=== PATIENT | female | born 1990 | race American Indian/Alaskan Native ===

== ENCOUNTER 2016-11-24 13:14 | Emergency (ER) | payer MEDICAID ==
--- NOTE | 2016-11-24 13:19 | EDM.PDOC ---
ED HISTORY OF PRESENT ILLNESS - General Chief Complaint: Respiratory Problem Stated Complaint: HEAVINESS IN CHEST 4XDAYS Time Seen by Provider: 11/24/16 13:18 Source of Information: Reports: Patient, Old records, RN, RN notes reviewed History Limitations: Reports: No limitations - History of Present Illness INITIAL COMMENTS - FREE TEXT/NARRATIVE: Arrives from home by POV with c/o generalized chest heaviness x4 days. Pt reports onset of Sx's was just a couple of days after starting an oral control pill for the first time. Admits to a mild persistent shortness of breath that is worse with activity, dry cough with occasional clear sputum, fatigue, mild nausea, and occasional lightheadedness. She denies radiating pain , fever, chills, sore throat, wheezing, leg pain or swelling, palpitations, syncope, or headache. Pt states she has never smoked, and denies any Hx of DVT/ PE. She is unsure of family Hx of DVT/PE. Symptom Onset Date: 11/20/16 Timing/Duration: Reports: Constant Severity: moderate Location, General: Reports: chest Quality: Reports: Pressure Improves with: Reports: None Worsens with: Reports: Other (cough and exertion) Context, General: Reports: Other (new medication (oral BCP)). 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: Endocrine/Metabolic History: Reports: Diabetes, gestational - Infectious Disease History Infectious Disease History: Reports: Chicken pox Social & Family History - Family History Family Medical History: Unobtainable - Tobacco Use Smoking Status *Q: Never Smoker Second Hand Smoke Exposure: No - Caffeine Use Caffeine Use: Reports: Soda - Alcohol Use Alcohol Use History: No - Recreational Drug Use Recreational Drug Use: No - Sexual History Sexual History: Reports: Sexually active, Single partner - Living Situation & Occupation Living situation: Reports: with significant other ED ROS GENERAL - Review of Systems Review Of Systems: ROS reveals no pertinent complaints other than HPI. ED EXAM, GENERAL - Physical Exam Exam: See Below Exam Limited By: No limitations General Appearance: alert, WD/WN, no apparent distress Eye Exam: bilateral eye: normal inspection Nose: normal inspection, normal mucosa, no blood Throat/Mouth: Normal inspection, Normal lips, Normal teeth, Normal gums, Normal oropharynx, Normal voice, No airway compromise Head: atraumatic, normocephalic Neck: normal inspection, supple, non-tender, full range of motion. No: carotid bruit, lymphadenopathy (L), lymphadenopathy (R), thyromegaly Respiratory/Chest: no respiratory distress, lungs clear, normal breath sounds, no accessory muscle use, chest non-tender Cardiovascular: normal peripheral pulses, regular rate, rhythm, no edema, no gallop, no JVD, no murmur, no rub GI/Abdominal: normal bowel sounds, soft, non tender, no organomegaly, no distention, no abnormal bruit, no mass (Female) Exam: Deferred Rectal (Female) Exam: Deferred Back Exam: normal inspection, full range of motion, NT Extremities: normal inspection, normal range of motion, non-tender, normal capillary refill, no pedal edema Neurological: alert, oriented, CN II-XII intact, normal cognition, normal gait, no motor/sensory deficits Psychiatric: normal affect, normal mood Skin Exam: Warm, Dry, Intact, Normal color, No rash EKG INTERPRETATION EKG Date: 11/24/16 Time: 13:26 Rhythm: other (SR) Rate (beats/min): 83 [place]: normal P-wave: present QRS: other (normal narrow complex. small Q wave and flat T wave in lead III) QT: normal Comparison: NA - no prior EKG Course - Vital Signs Last Recorded V/S: Last Vital Signs Temp 36.8 C 11/24/16 13:31 Pulse 85 11/24/16 13:31 Resp 16 11/24/16 13:31 BP 120/77 11/24/16 13:31 Pulse Ox 100 11/24/16 13:31 - Orders/Labs/Meds Orders: Active Orders 24 hr Category Date Time Status EKG 12 Lead [EKG Documentation Completion] [RC] STAT Care 11/24/16 13:30 Active Chest 2V [CR] Stat Exams 11/24/16 14:19 Taken Labs: Laboratory Tests 11/24/16 11/24/16 11/24/16 Range/Units 13:26 13:26 13:26 WBC (5.0-10.0) 10^3/uL RBC (4.2-5.4) 10^6/uL Hgb (12.0-16.0) g/dL Hct (37.0-47.0) % MCV (80-100) fL MCH (27.0-34.0) pg MCHC (33.0-35.0) g/dL Plt Count (150-450) 10^3/uL Neut % (Auto) (42.2-75.2) % Lymph % (Auto) (20.5-50.1) % [place] % (Auto) (2-8) % Eos % (Auto) (1.0-3.0) % Baso % (Auto) (0.0-1.0) % D-Dimer, Quantitative (0-400) ng/mL Sodium (135-145) mmol/L Potassium (3.6-5.0) mmol/L Chloride (101-111) mmol/L Carbon Dioxide (21.0-31.0) mmol/L Anion Gap BUN (7-18) mg/dL Creatinine (0.6-1.3) mg/dL Est Cr Clr Drug Dosing mL/min Estimated GFR (MDRD) BUN/Creatinine Ratio Glucose (74-105) mg/dL Calcium (8.4-10.2) mg/dl Total Bilirubin (0.2-1.0) mg/dL AST (10-42) IU/L ALT (10-60) IU/L Alkaline Phosphatase (42-121) IU/L Troponin I (0.00-0.02) ng/ml Total Protein (6.7-8.2) g/dl Albumin (3.2-5.5) g/dl Globulin Albumin/Globulin Ratio Urine Color Yellow (YELLOW) Urine Appearance Clear (CLEAR) Urine pH 7.5 (5.0-9.0) Ur Specific [place] 1.020 (1.005-1.030) Urine Protein Negative (NEGATIVE) Urine Glucose (UA) Negative (NEGATIVE) Urine Ketones Negative (NEGATIVE) Urine Occult Blood Negative (NEGATIVE) Urine Nitrite Negative (NEGATIVE) Urine Bilirubin Negative (NEGATIVE) Urine Urobilinogen 0.2 (0.2-1.0) mg/dL Ur Leukocyte Esterase Negative (NEGATIVE) Urine RBC 0-5 /HPF Urine WBC 0-5 (0-5/HPF) /HPF Ur Epithelial Cells Occasional /HPF Urine Bacteria Few (0-FEW/HPF) /HPF Urine HCG, Qual Negative Urine Opiates Screen Negative (NEGATIVE) Ur Oxycodone Screen Negative (NEGATIVE) Urine Methadone Screen Negative (NEGATIVE) Ur Barbiturates Screen Negative (NEGATIVE) U Tricyclic Antidepress Negative (NEGATIVE) Ur Phencyclidine Scrn Negative (NEGATIVE) Ur Amphetamine Screen Negative (NEGATIVE) U Methamphetamines Scrn Negative (NEGATIVE) Urine MDMA Screen Negative (NEGATIVE) U Benzodiazepines Scrn Negative (NEGATIVE) Urine Cocaine Screen Negative (NEGATIVE) U Marijuana (THC) Screen Negative (NEGATIVE) 11/24/16 11/24/16 11/24/16 Range/Units 13:35 13:35 13:35 WBC 10.0 (5.0-10.0) 10^3/uL RBC 4.06 L (4.2-5.4) 10^6/uL Hgb 12.1 (12.0-16.0) g/dL Hct 37.0 (37.0-47.0) % MCV 91.1 (80-100) fL MCH 29.8 (27.0-34.0) pg MCHC 32.7 L (33.0-35.0) g/dL Plt Count 282 (150-450) 10^3/uL Neut % (Auto) 64.0 (42.2-75.2) % Lymph % (Auto) 28.2 (20.5-50.1) % [place] % (Auto) 6.4 (2-8) % Eos % (Auto) 0.9 L (1.0-3.0) % Baso % (Auto) 0.5 (0.0-1.0) % D-Dimer, Quantitative < 100 (0-400) ng/mL Sodium 139 (135-145) mmol/L Potassium 3.7 (3.6-5.0) mmol/L Chloride 107 (101-111) mmol/L Carbon Dioxide 25.0 (21.0-31.0) mmol/L Anion Gap 10.7 BUN 8 (7-18) mg/dL Creatinine 0.7 (0.6-1.3) mg/dL Est Cr Clr Drug Dosing 112.78 mL/min Estimated GFR (MDRD) > 60 BUN/Creatinine Ratio 11.42 Glucose 103 (74-105) mg/dL Calcium 8.8 (8.4-10.2) mg/dl Total Bilirubin 0.2 (0.2-1.0) mg/dL AST 18 (10-42) IU/L ALT 14 (10-60) IU/L Alkaline Phosphatase 73 (42-121) IU/L Troponin I < 0.02 (0.00-0.02) ng/ml Total Protein 7.6 (6.7-8.2) g/dl Albumin 4.1 (3.2-5.5) g/dl Globulin 3.5 Albumin/Globulin Ratio 1.17 Urine Color (YELLOW) Urine Appearance (CLEAR) Urine pH (5.0-9.0) Ur Specific [place] (1.005-1.030) Urine Protein (NEGATIVE) Urine Glucose (UA) (NEGATIVE) Urine Ketones (NEGATIVE) Urine Occult Blood (NEGATIVE) Urine Nitrite (NEGATIVE) Urine Bilirubin (NEGATIVE) Urine Urobilinogen (0.2-1.0) mg/dL Ur Leukocyte Esterase (NEGATIVE) Urine RBC /HPF Urine WBC (0-5/HPF) /HPF Ur Epithelial Cells /HPF Urine Bacteria (0-FEW/HPF) /HPF Urine HCG, Qual Urine Opiates Screen (NEGATIVE) Ur Oxycodone Screen (NEGATIVE) Urine Methadone Screen (NEGATIVE) Ur Barbiturates Screen (NEGATIVE) U Tricyclic Antidepress (NEGATIVE) Ur Phencyclidine Scrn (NEGATIVE) Ur Amphetamine Screen (NEGATIVE) U Methamphetamines Scrn (NEGATIVE) Urine MDMA Screen (NEGATIVE) U Benzodiazepines Scrn (NEGATIVE) Urine Cocaine Screen (NEGATIVE) U Marijuana (THC) Screen (NEGATIVE) - Radiology Interpretation Free Text/Narrative:: CXR: no acute infiltrates, see Rad. report. CT Results Date: 11/24/16 - Re-Assessments/Exams Free Text/Narrative Re-Assessment/Exam: 11/24/16 15:00 I explained the exam findings, results of all diagnostic tests, working diagnosis, and any potential or additionally considered diagnoses, treatment/ disposition plan, self/home care instructions, rational for the diagnosis/ treatment plan/disposition plan, anticipated course of illness, and follow up instructions to the pt and/or pts family or guardian. The pt and/or pts family or guardian acknowledges understanding of the above explanation(s), and of the signs and symptoms which should prompt the return of the pt to the ER should those or any other concerning symptoms develop. Departure - Departure Time of Disposition: 15:07 Disposition: Home, Self-Care 01 Condition: good Clinical Impression: Chest heaviness Oral contraceptive causing adverse effect in therapeutic use Qualifiers: Encounter type: initial encounter Qualified Code(s): T38.4X5A - Adverse effect of oral contraceptives, initial encounter Instructions: Nonspecific Chest Pain, [id number] Forms: ED Department Discharge Additional Instructions: Follow up with your doctor about adverse side effects to your new oral control. Return to ER if worse at any time, or if any new concerning symptoms develop. - My Orders Last 24 Hours: My Active Orders 11/24/16 13:30 EKG 12 Lead [EKG Documentation Completion] [RC] STAT 11/24/16 14:19 Chest 2V [CR] Stat - Assessment/Plan Last 24 Hours: My Active Orders 11/24/16 13:30 EKG 12 Lead [EKG Documentation Completion] [RC] STAT 11/24/16 14:19 Chest 2V [CR] Stat
[2016-11-24 13:34] VITALS: BP 120/77
[2016-11-24 14:04] LABS: CHLORIDE,CL 107 mmol/L (101-111); SODIUM,NA 139 mmol/L (135-145)
--- NOTE | 2016-11-24 15:08 | CR ---
Clinical history: 26-year-old female chest "heaviness" and congestion Interpretation: Negative exam. Normal cardiac silhouette without alveolar edema or dependent pleural effusion. No lung mass, hilar lymphadenopathy or focal lobar pneumonia. No acute "cuffing" or air trapping. No atelectasis/collapse. No pneumothorax. Isaias thorax unremarkable.
--- NOTE | 2016-11-30 21:01 | EKG ---
11/24/2016 - KALYANI VEGAS - TIME: 1526 hours. I reviewed the EKG and agree with the machine's reading. [facility] /[id number]
== END 2016-11-24 15:17 | disposition home or self-care (01) ==
LOC: DL.ED 13:14
DX: R07.89 Other chest pain (principal); T38.4X5A Adverse effect of oral contraceptives, initial encounter; K21.9 Gastro-esophageal reflux disease without esophagitis
CPT/HCPCS: 36415; 71020; 80053; 80305; 81001; 81025; 84484; 85025; 85379; 93005; 99285

== ENCOUNTER 2017-09-12 16:31 | Emergency (ER) | payer MEDICAID ==
[2017-09-12 16:44] VITALS: BP 125/72
[2017-09-12] MEDS ORDERED: Ketorolac 30 MG/ML SDV IVPUSH ONE (16:56)
[2017-09-12] MEDS ORDERED: Sodium Chloride 0.9% 1,000 ML IV ONE (16:56)
[2017-09-12 17:36] LABS: ANION GAP 12.5; CHLORIDE,CL 102 mmol/L (101-111); SODIUM,NA 136 mmol/L (135-145)
--- NOTE | 2017-09-12 17:41 | EDM.PDOC ---
ED HPI GENERAL MEDICAL PROBLEM - General Chief Complaint: Headache Stated Complaint: HEADACHE, [id number] Time Seen by Provider: 09/12/17 17:30 Source of Information: Reports: Patient History Limitations: Reports: No Limitations - History of Present Illness INITIAL COMMENTS - FREE TEXT/NARRATIVE: This 27 yo female patient reports to the ED with a 3 day history of a headache ( the headache has been behind her eyes, behind her left ear and in the posterior head). The patient reports she currently does not have a headache. The patient reports she also had a toothache, saw the dentist, was told there was no abscess (after x-rays), was given a script for Augmentin, but has not filled the script. The patient reports she came to the ED for a second opinion directly from the dental office. The patient reports she has taken some ibuprofen, but continues to have a headache. The patient reports she has been eating and drinking normal amounts. The patient reports no changes in her caffeine intake. 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 Left Posterior Headache Pain Score (Numeric/FACES): 3 - Related Data Allergies Allergy/AdvReac Type Severity Reaction Status Date / Time No Known Allergies Allergy Verified 02/16/16 08:31 Home Meds: Home Meds Control 11/24/16 [History] Past Medical History - Past Health History Medical/Surgical History: Denies Medical/Surgical History Gastrointestinal History: Reports: GERD 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: Endocrine/Metabolic History: Reports: Diabetes, Gestational - Infectious Disease History Infectious Disease History: Reports: Chicken Pox Social & Family History - Family History Family Medical History: Unobtainable - Tobacco Use Smoking Status *Q: Never Smoker Second Hand Smoke Exposure: No - Caffeine Use Caffeine Use: Reports: Coffee, Tea - Recreational Drug Use Recreational Drug Use: No - Sexual History Sexual History: Reports: Sexually Active, Single Partner - Living Situation & Occupation Living situation: Reports: with Significant Other ED ROS GENERAL - Review of Systems Review Of Systems: ROS reveals no pertinent complaints other than HPI. - Physical Exam Exam: See Below Exam Limited By: No Limitations General Appearance: Alert, WD/WN, No Apparent Distress Eye Exam: Bilateral Eye: EOMI, Normal Inspection, PERRL Ears: Normal External Exam, Normal Canal, Hearing Grossly Normal, Normal TMs Nose: Normal Inspection, Normal Mucosa, No Blood Throat/Mouth: Normal Inspection, Normal Lips, Normal Teeth, Normal Gums, Normal Oropharynx, Normal Voice, No Airway Compromise Head Exam: Atraumatic, Normocephalic Neck: Normal Inspection, Supple, Non-Tender, Full Range of Motion Respiratory/Chest: No Respiratory Distress, Lungs Clear, Normal Breath Sounds, No Accessory Muscle Use, Chest Non-Tender Cardiovascular: Normal Peripheral Pulses, Regular Rate, Rhythm, No Edema, No Gallop, No JVD, No Murmur, No Rub GI/Abdominal: Normal Bowel Sounds, Soft, Non-Tender, No Organomegaly, No Distention, No Abnormal Bruit, No Mass (Female) Exam: Deferred Rectal (Female) Exam: Deferred Neuro Exam (Abbreviated): Alert, Oriented, CN II-XII Intact, Normal Cognition, Normal Gait, Normal Reflexes, No Motor/Sensory Deficits Back Exam: Normal Inspection, Full Range of Motion, NT Extremities: Normal Inspection, Normal Range of Motion, Non-Tender, No Pedal Edema, Normal Capillary Refill Psychiatric: Normal Affect, Normal Mood Skin Exam: Warm, Dry, Intact, Normal Color, No Rash Course - Vital Signs Last Recorded V/S: Last Vital Signs Temp 36.9 C 09/12/17 16:43 Pulse 78 09/12/17 16:43 Resp 16 09/12/17 16:43 BP 125/72 09/12/17 16:43 Pulse Ox 100 09/12/17 16:43 - Orders/Labs/Meds Orders: Active Orders 24 hr Category Date Time Status CBC WITH AUTO DIFF [HEME] Urgent Lab 09/12/17 17:05 Results MANUAL DIFFERENTIAL QA/NC [HEME] Urgent Lab 09/12/17 17:05 Results Labs: Laboratory Tests 09/12/17 09/12/17 09/12/17 Range/Units 17:05 17:05 17:58 WBC 9.4 (5.0-10.0) 10^3/uL RBC 4.36 (4.2-5.4) 10^6/uL Hgb 13.0 (12.0-16.0) g/dL Hct 39.2 (37.0-47.0) % MCV 89.9 (80-100) fL MCH 29.8 (27.0-34.0) pg MCHC 33.2 (33.0-35.0) g/dL Plt Count 288 (150-450) 10^3/uL Neut % (Auto) 62.4 (42.2-75.2) % Lymph % (Auto) 29.7 (20.5-50.1) % [place] % (Auto) 6.6 (2-8) % Eos % (Auto) 0.8 L (1.0-3.0) % Baso % (Auto) 0.5 (0.0-1.0) % Add Manual Diff Yes Sodium 136 (135-145) mmol/L Potassium 3.5 L (3.6-5.0) mmol/L Chloride 102 (101-111) mmol/L Carbon Dioxide 25.0 (21.0-31.0) mmol/L Anion Gap 12.5 BUN 9 (7-18) mg/dL Creatinine 0.8 (0.6-1.3) mg/dL Est Cr Clr Drug Dosing 95.89 mL/min Estimated GFR (MDRD) > 60 BUN/Creatinine Ratio 11.25 Glucose 89 (74-105) mg/dL Calcium 9.3 (8.4-10.2) mg/dl Total Bilirubin 0.8 (0.2-1.0) mg/dL AST 52 H (10-42) IU/L ALT 40 (10-60) IU/L Alkaline Phosphatase 54 (42-121) IU/L Total Protein 7.8 (6.7-8.2) g/dl Albumin 4.7 (3.2-5.5) g/dl Globulin 3.1 Albumin/Globulin Ratio 1.52 Urine Color (YELLOW) Urine Appearance (CLEAR) Urine pH (5.0-9.0) Ur Specific [place] (1.005-1.030) Urine Protein (NEGATIVE) Urine Glucose (UA) (NEGATIVE) Urine Ketones (NEGATIVE) Urine Occult Blood (NEGATIVE) Urine Nitrite (NEGATIVE) Urine Bilirubin (NEGATIVE) Urine Urobilinogen (0.2-1.0) mg/dL Ur Leukocyte Esterase (NEGATIVE) Urine RBC /HPF Urine WBC (0-5/HPF) /HPF Ur Epithelial Cells /HPF Urine Bacteria (0-FEW/HPF) /HPF Urine Mucus /LPF Urine HCG, Qual Negative 09/12/17 Range/Units 17:58 WBC (5.0-10.0) 10^3/uL RBC (4.2-5.4) 10^6/uL Hgb (12.0-16.0) g/dL Hct (37.0-47.0) % MCV (80-100) fL MCH (27.0-34.0) pg MCHC (33.0-35.0) g/dL Plt Count (150-450) 10^3/uL Neut % (Auto) (42.2-75.2) % Lymph % (Auto) (20.5-50.1) % [place] % (Auto) (2-8) % Eos % (Auto) (1.0-3.0) % Baso % (Auto) (0.0-1.0) % Add Manual Diff Sodium (135-145) mmol/L Potassium (3.6-5.0) mmol/L Chloride (101-111) mmol/L Carbon Dioxide (21.0-31.0) mmol/L Anion Gap BUN (7-18) mg/dL Creatinine (0.6-1.3) mg/dL Est Cr Clr Drug Dosing mL/min Estimated GFR (MDRD) BUN/Creatinine Ratio Glucose (74-105) mg/dL Calcium (8.4-10.2) mg/dl Total Bilirubin (0.2-1.0) mg/dL AST (10-42) IU/L ALT (10-60) IU/L Alkaline Phosphatase (42-121) IU/L Total Protein (6.7-8.2) g/dl Albumin (3.2-5.5) g/dl Globulin Albumin/Globulin Ratio Urine Color Yellow (YELLOW) Urine Appearance Slightly cloudy (CLEAR) Urine pH 7.0 (5.0-9.0) Ur Specific [place] 1.015 (1.005-1.030) Urine Protein Negative (NEGATIVE) Urine Glucose (UA) Negative (NEGATIVE) Urine Ketones Trace H (NEGATIVE) Urine Occult Blood Trace-lysed H (NEGATIVE) Urine Nitrite Negative (NEGATIVE) Urine Bilirubin Negative (NEGATIVE) Urine Urobilinogen 0.2 (0.2-1.0) mg/dL Ur Leukocyte Esterase Trace H (NEGATIVE) Urine RBC 0-5 /HPF Urine WBC 5-10 H (0-5/HPF) /HPF Ur Epithelial Cells Many H /HPF Urine Bacteria Rare (0-FEW/HPF) /HPF Urine Mucus Rare /LPF Urine HCG, Qual Meds: Medications Discontinued Medications Generic Name Dose Route Start Last Admin Trade Name Margarita PRN Reason Stop Dose Admin Sodium Chloride 1,000 mls @ 999 mls/hr 09/12/17 16:56 09/12/17 17:14 Normal Saline IV 09/12/17 17:56 999 mls/hr .BOLUS ONE Administration Ketorolac Tromethamine 30 mg 09/12/17 16:56 09/12/17 17:49 Toradol IVPUSH 09/12/17 16:57 Not Given ONETIME ONE Departure - Departure Time of Disposition: 18:25 Disposition: Home, Self-Care 01 Condition: Fair Clinical Impression: Tension-type headache - Discharge Information Instructions: General Headache Without Cause, Nqny-[id number] Forms: ED Department Discharge Care Plan Goals: The patient was advised of the examination and lab results during the visit. The patient was given a liter of IV fluid while in the ED. The patient was encouraged to take over the counter medications for temporary symptom relief. If the patient has any additional symptoms or concerns, the patient should follow-up with her primary care provider or return to the emergency department. - My Orders Last 24 Hours: My Active Orders 09/12/17 17:05 CBC WITH AUTO DIFF [HEME] Urgent MANUAL DIFFERENTIAL QA/NC [HEME] Urgent - Assessment/Plan Last 24 Hours: My Active Orders 09/12/17 17:05 CBC WITH AUTO DIFF [HEME] Urgent MANUAL DIFFERENTIAL QA/NC [HEME] Urgent
== END 2017-09-12 18:38 | disposition home or self-care (01) ==
LOC: DL.ED 16:31
DX: G44.209 Tension-type headache, unspecified, not intractable (principal)
CPT/HCPCS: 36415; 80053; 81001; 81025; 85025; 96360; 99283; J7030

== ENCOUNTER 2018-01-11 16:40 | Emergency (ER) | payer MEDICAID ==
--- NOTE | 2018-01-11 17:11 | EDM.PDOC ---
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 It comes and goes. She recently finished Augmentin for dental infection. She gets diarrhea with Augmentin. She is not nauseated at this time. She has chills and chest wall pain. She has had no fever or shortness of breath. She has been taking Tylenol and Ibuprofen. Onset Date: 01/10/18 Duration: Getting Worse Location: Reports: Generalized Quality: Reports: Ache Severity: Mild Improves with: Reports: None Worsens with: Reports: None Associated Symptoms: Reports: No Other Symptoms Left Chest Pain Score (Numeric/FACES): 2 - Related Data Allergies Allergy/AdvReac Type Severity Reaction Status Date / Time No Known Allergies Allergy Verified 01/11/18 17:06 Home Meds: Home Meds Acetaminophen [Tylenol Extra Strength] 500 mg PO PRN 01/11/18 [History] Ibuprofen 400 mg PO PRN 01/11/18 [History] Past Medical History - Past Health History Medical/Surgical History: Denies Medical/Surgical History Gastrointestinal History: Reports: 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 ED EXAM, GENERAL - Physical Exam Exam: See Below Exam Limited By: No Limitations General Appearance: Alert, WD/WN, No Apparent Distress Eye Exam: Bilateral Eye: EOMI, Normal Inspection Ears: Normal External Exam, Normal Canal, Hearing Grossly Normal, Normal TMs Nose: Normal Inspection, Normal Mucosa, No Blood Throat/Mouth: Normal Inspection, Normal Lips, Normal Teeth, Normal Gums, Normal Oropharynx, Normal Voice, No Airway Compromise Head: Atraumatic, Normocephalic Neck: Normal Inspection, Supple, Non-Tender, Full Range of Motion Respiratory/Chest: No Respiratory Distress, Lungs Clear, Normal Breath Sounds, No Accessory Muscle Use, Chest Non-Tender Cardiovascular: Normal Peripheral Pulses, Regular Rate, Rhythm, No Edema, No Gallop, No JVD, No Murmur, No Rub GI/Abdominal: Normal Bowel Sounds, Soft, Non-Tender, No Organomegaly, No Distention, No Abnormal Bruit, No Mass (Female) Exam: Deferred Rectal (Female) Exam: Deferred Back Exam: Normal Inspection, Full Range of Motion, NT Extremities: Normal Inspection, Normal Range of Motion, Non-Tender, Normal Capillary Refill, No Pedal Edema Neurological: Alert, Oriented, CN II-XII Intact, Normal Cognition, Normal Gait, Normal Reflexes, No Motor/Sensory Deficits Psychiatric: Normal Affect, Normal Mood Skin Exam: Warm, Dry, Intact, Normal Color, No Rash Lymphatic: No Adenopathy EKG INTERPRETATION EKG Date: 01/11/18 Time: 17:02 Rhythm: Other (sinus rhythm) Rate (Beats/Min): 76 EKG Interpretation Comments: Inverted T waves V1 and AVR. Course - Vital Signs Last Recorded V/S: Last Vital Signs Temp 98.0 F 01/11/18 17:08 Pulse 84 01/11/18 17:08 Resp 14 01/11/18 17:08 BP 121/75 01/11/18 17:08 Pulse Ox 100 01/11/18 17:08 - Orders/Labs/Meds Orders: Active Orders 24 hr Category Date Time Status EKG 12 Lead [EKG Documentation Completion] [RC] URGENT Care 01/11/18 17:23 Active Chest 1V Frontal [CR] Stat Exams 01/11/18 17:56 Taken DRUG SCREEN URINE BIORAD [URCHEM] Stat Lab 01/11/18 17:56 Ordered HCG QUALITATIVE,URINE [URCHEM] Stat Lab 01/11/18 17:56 Ordered UA W/MICROSCOPIC [URIN] Stat Lab 01/11/18 17:56 Ordered Labs: Laboratory Tests 01/11/18 01/11/18 Range/Units 17:05 17:05 WBC 10.3 H (5.0-10.0) 10^3/uL RBC 4.43 (4.2-5.4) 10^6/uL Hgb 13.3 (12.0-16.0) g/dL Hct 39.9 (37.0-47.0) % MCV 90.1 (80-100) fL MCH 30.0 (27.0-34.0) pg MCHC 33.3 (33.0-35.0) g/dL Plt Count 318 (150-450) 10^3/uL Neut % (Auto) 54.6 (42.2-75.2) % Lymph % (Auto) 37.2 (20.5-50.1) % [place] % (Auto) 6.6 (2-8) % Eos % (Auto) 1.2 (1.0-3.0) % Baso % (Auto) 0.4 (0.0-1.0) % Sodium 137 (135-145) mmol/L Potassium 3.4 L (3.6-5.0) mmol/L Chloride 104 (101-111) mmol/L Carbon Dioxide 26.0 (21.0-31.0) mmol/L Anion Gap 10.4 BUN 8 (7-18) mg/dL Creatinine 0.8 (0.6-1.3) mg/dL Est Cr Clr Drug Dosing 95.89 mL/min Estimated GFR (MDRD) > 60 BUN/Creatinine Ratio 10.00 Glucose 88 (74-105) mg/dL Calcium 9.4 (8.4-10.2) mg/dl Total Bilirubin 0.0 L (0.2-1.0) mg/dL AST 22 (10-42) IU/L ALT 15 (10-60) IU/L Alkaline Phosphatase 65 (42-121) IU/L Total Protein 8.0 (6.7-8.2) g/dl Albumin 4.6 (3.2-5.5) g/dl Globulin 3.4 Albumin/Globulin Ratio 1.35 Amylase 56 (28-100) U/L Lipase 22 (22-51) U/L Ethyl Alcohol < 5 mg/dL - Radiology Interpretation Free Text/Narrative:: Chest x-ray: No acute cardiopulmonary process. There is no significant interval change. See rad report. Departure - Departure Time of Disposition: 18:43 Disposition: Home, Self-Care 01 Reason for Transfer *Q: Other Condition: Fair Clinical Impression: Nonspecific chest pain Instructions: Nonspecific Chest Pain, [id number] Referrals: Ran,Ayush C, MD [Primary Care Provider] - Forms: ED Department Discharge Additional Instructions: Follow up with your primary care facility - My Orders Last 24 Hours: My Active Orders 01/11/18 17:23 EKG 12 Lead [EKG Documentation Completion] [RC] URGENT 01/11/18 17:56 Chest 1V Frontal [CR] Stat DRUG SCREEN URINE BIORAD [URCHEM] Stat HCG QUALITATIVE,URINE [URCHEM] Stat UA W/MICROSCOPIC [URIN] Stat - Assessment/Plan Last 24 Hours: My Active Orders 01/11/18 17:23 EKG 12 Lead [EKG Documentation Completion] [RC] URGENT 01/11/18 17:56 Chest 1V Frontal [CR] Stat DRUG SCREEN URINE BIORAD [URCHEM] Stat HCG QUALITATIVE,URINE [URCHEM] Stat UA W/MICROSCOPIC [URIN] Stat
[2018-01-11 17:12] VITALS: BP 121/75
[2018-01-11 18:14] LABS: CHLORIDE,CL 104 mmol/L (101-111); SODIUM,NA 137 mmol/L (135-145)
--- NOTE | 2018-01-15 13:26 | EKG ---
01/11/2018- [facility] [place] - FINDINGS: EKG shows a heart rate of 76 beats per minute, sinus rhythm; normal EKG. [facility] /[id number]
== END 2018-01-11 18:53 | disposition home or self-care (01) ==
LOC: DL.ED 16:40
DX: R07.89 Other chest pain (principal)
CPT/HCPCS: 36415; 71045; 80053; 82150; 83690; 85025; 93005; 99285; G0480

== ENCOUNTER 2021-05-14 01:35 | Emergency (ER) | payer MEDICAID ==
[2021-05-14 01:56] VITALS: BP 127/76; PULSE 90
== END 2021-05-14 01:57 | disposition left against medical advice (07) ==
LOC: DL.ED 01:35
DX: Z53.21 Procedure and treatment not carried out due to patient leaving prior to being seen by health care provider (principal)

== ENCOUNTER 2021-05-14 07:45 | Emergency (ER) | payer MEDICAID ==
[2021-05-14 08:16] VITALS: BP 134/72; PULSE 94
--- NOTE | 2021-05-14 08:28 | EDM.PDOC ---
ED HPI GENERAL MEDICAL PROBLEM - General Chief Complaint: Respiratory Problem Stated Complaint: [id number] COVID NEG BAD BRONCITIS SORE THROAT Time Seen by Provider: 05/14/21 08:22 Source of Information: Reports: Patient History Limitations: Reports: No Limitations - History of Present Illness INITIAL COMMENTS - FREE TEXT/NARRATIVE: 30 y/o F c/o Cough with green sputum since yesterday morning accompanied with sore throat that started Sunday. Pt was seen by her PCP Dr. Tong and was tested for Strep and COVID on Sunday both of which were reported as negative. She states her chest hurts from all the coughing and only hurts when she coughs. She has tried mucinex with no relief in symptoms. 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 One coworker reportedly was diagnosed with PNA. Pt hx of strep throat and usually gets it once a year. She is 8 weeks and is taking her vitamins. She states she has viewed multiple white patches on her tonsuls and would like to be screen again fro strep and would also like to have a CXR to make sure she does not have a PNA. She understands the risk of radiation to her unborn child and would like the CXR anyway. She denies fever, chills, drugs, etoh, abd pn, recent trauma, diff voiding, extremity pn. No hx of DVYS or PEs. No other daily meds, NKDA. . 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 ED EXAM, GENERAL - Physical Exam Exam: See Below Exam Limited By: No Limitations General Appearance: Alert, No Apparent Distress Eye Exam: Bilateral Eye: PERRL Ears: Normal External Exam, Normal Canal, Hearing Grossly Normal, Normal TMs Nose: Normal Inspection, Normal Mucosa, No Blood Throat/Mouth: Other (swollen tonsillar pillars with some tonsillar exudates bilaterally.) Head: Atraumatic, Normocephalic Neck: Supple, Non-Tender, Lymphadenopathy (L) Respiratory/Chest: No Respiratory Distress, Lungs Clear, Normal Breath Sounds, No Accessory Muscle Use, Chest Non-Tender Cardiovascular: Normal Peripheral Pulses, Regular Rate, Rhythm, No JVD Peripheral Pulses: 2+: Radial (L), Radial (R) GI/Abdominal: Soft, Non-Tender (Female) Exam: Deferred Rectal (Female) Exam: Deferred Back Exam: Normal Inspection, Full Range of Motion Extremities: Normal Inspection, Normal Range of Motion, Non-Tender, Normal Capillary Refill, No Pedal Edema Neurological: Alert, Oriented, Normal Cognition Psychiatric: Normal Affect, Normal Mood Skin Exam: Warm, Dry, Intact Course - Vital Signs Last Recorded V/S: Last Vital Signs Temp 98.0 F 05/14/21 08:13 Pulse 94 05/14/21 08:13 Resp 20 05/14/21 08:13 BP 134/72 05/14/21 08:13 Pulse Ox 99 05/14/21 08:13 - Orders/Labs/Meds Orders: Active Orders 24 hr Category Date Time Status Chest 1V Frontal [CR] Urgent Exams 05/14/21 08:07 Taken CULTURE STREP A CONFIRMATION [RM] Stat Lab 05/14/21 08:21 Results STREP SCRN A RAPID W CULT CONF [RM] Stat Lab 05/14/21 08:21 Results Labs: Laboratory Tests 05/14/21 05/14/21 Range/Units 08:16 08:16 WBC 11.5 H (5.0-10.0) 10^3/uL RBC 4.21 (4.2-5.4) 10^6/uL Hgb 12.7 (12.0-16.0) g/dL Hct 37.6 (37.0-47.0) % MCV 89.3 (80-100) fL MCH 30.2 (27.0-34.0) pg MCHC 33.8 (33.0-35.0) g/dL Plt Count 310 (150-450) 10^3/uL Neut % (Auto) 73.9 (42.2-75.2) % Lymph % (Auto) 19.2 L (20.5-50.1) % [place] % (Auto) 4.9 (2-8) % Eos % (Auto) 1.6 (1.0-3.0) % Baso % (Auto) 0.4 (0.0-1.0) % Sodium 140 (136-145) mmol/L Potassium 3.6 (3.5-5.1) mmol/L Chloride 104 (98-107) mmol/L Carbon Dioxide 24 (21-32) mmol/L Anion Gap 15.6 H (7-13) mEq/L BUN 6 L (7-18) mg/dL Creatinine 0.75 (0.55-1.02) mg/dL Est Cr Clr Drug Dosing 99.59 mL/min Estimated GFR (MDRD) > 60 BUN/Creatinine Ratio 8.0 (No establ ref range) Glucose 109 H (70-99) mg/dL Calcium 8.8 (8.5-10.1) mg/dL Total Bilirubin 0.3 (0.2-1.0) mg/dL AST 9 L (15-37) U/L ALT 15 (14-59) U/L Alkaline Phosphatase 69 (46-116) U/L Total Protein 7.7 (6.4-8.2) g/dL Albumin 3.6 (3.4-5.0) g/dL Globulin 4.1 Albumin/Globulin Ratio 0.9 Departure - Departure Time of Disposition: 09:00 Disposition: Home, Self-Care 01 Clinical Impression: URI (upper respiratory infection) Qualifiers: URI type: unspecified viral URI Qualified Code(s): J06.9 - Acute upper respiratory infection, unspecified - Discharge Information *PRESCRIPTION DRUG MONITORING PROGRAM REVIEWED*: Not Applicable *COPY OF PRESCRIPTION DRUG MONITORING REPORT IN PATIENT MYRIAM: Not Applicable Instructions: Upper Respiratory Infection, Adult Forms: ED Department Discharge Additional Instructions: Use tylenol for pain as needed. Mucinex is a category C drug in and should be avoided unless the benefits outweigh the risks. As you have stated Mucinex did not help you therefore I would stop taking it while you are . If your symptoms do not improve in 10 days or if any new symptoms or concerns develop contact your primary care facility or return to the ER. Sepsis Event Note (ED) - Focused Exam Vital Signs: Vital Signs Temp Pulse Resp BP Pulse Ox 05/14/21 08:13 98.0 F 94 20 134/72 99 - My Orders Last 24 Hours: My Active Orders 05/14/21 08:07 Chest 1V Frontal [CR] Urgent 05/14/21 08:21 CULTURE STREP A CONFIRMATION [RM] Stat STREP SCRN A RAPID W CULT CONF [RM] Stat - Assessment/Plan Last 24 Hours: My Active Orders 05/14/21 08:07 Chest 1V Frontal [CR] Urgent 05/14/21 08:21 CULTURE STREP A CONFIRMATION [RM] Stat STREP SCRN A RAPID W CULT CONF [RM] Stat
[2021-05-14 08:42] LABS: ANION GAP 15.6 mEq/L (7-13); CHLORIDE,CL 104 mmol/L (98-107); SODIUM,NA 140 mmol/L (136-145)
--- NOTE | 2021-05-14 10:24 | CR ---
PROCEDURE INFORMATION: Exam: XR Chest Exam date and time: 05/14/2021 8:27 AM Age: 30 years old Clinical indication: Other: SOB, cough with green sputum TECHNIQUE: Imaging protocol: XR of the chest. Views: 1 view. COMPARISON: CR Chest 2V 07/22/2020 9:31 AM FINDINGS: Lungs: The lungs are normally expanded and clear. Pleural spaces: Normal. Heart/Mediastinum: Normal heart and cardio-mediastinal silhouette. Vasculature: Normal pulmonary vessels and width of the vascular pedicle. Bones/joints: Intact and normally aligned. No suspicious lesion. IMPRESSION: No acute disease or suspicious finding.
== END 2021-05-14 09:57 | disposition home or self-care (01) ==
LOC: DL.ED 07:45
DX: J06.9 Acute upper respiratory infection, unspecified (principal)
CPT/HCPCS: 36415; 71045; 80053; 85025; 87081; 87430; 99283-25

== ENCOUNTER 2021-12-06 08:04 | Inpatient (IN) | payer MEDICAID ==
[2021-12-06] MEDS ORDERED: Methylergonovine 0.2 MG/1 ML Amp IM PRN ×2 (08:22→14:11)
[2021-12-06] MEDS ORDERED: Carboprost Tromethamine 250 MCG/1 ML Amp IM PRN ×2 (08:22→14:11)
[2021-12-06] MEDS ORDERED: Ondansetron 4 MG/2 ML SDV IVPUSH PRN (08:22)
[2021-12-06] MEDS ORDERED: Tranexamic Acid 1,000 MG in Sodium Chloride 0.9% 100 ML IV PRN ×2 (08:22→14:11)
[2021-12-06] MEDS ORDERED: Lactated Ringers 1,000 ML IV ONE (08:22)
[2021-12-06] MEDS ORDERED: Acetaminophen 325 MG Tab PO PRN ×3 (08:22→14:11)
[2021-12-06] MEDS ORDERED: Lidocaine 1% 30 ML SDV INJECT PRN (08:22)
[2021-12-06] MEDS ORDERED: Misoprostol 400 MCG (4 X 100 MCG TAB) RECTAL PRN ×2 (08:22→14:11)
[2021-12-06] MEDS ORDERED: Sodium Chloride 0.9% 10 ML Syringe FLUSH PRN (08:22)
[2021-12-06] MEDS ORDERED: fentaNYL 100 MCG/2 ML SDV IVPUSH PRN (08:22)
[2021-12-06] MEDS ORDERED: Lactated Ringers 1,000 ML IV SCH ×2 (08:30→14:15)
[2021-12-06] MEDS ORDERED: Oxytocin/Normal Saline 30 UNIT/500 ML BAG IV SCH ×2 (08:30)
[2021-12-06] MEDS: Sodium Chloride 0.9% 10 ML Syringe FLUSH SCH ×2 (08:57→22:32)
[2021-12-06] MEDS ORDERED: Penicillin G Potassium 5 MILLUNITS in Sodium Chloride 0.9% 100 ML IV ONE (09:00)
[2021-12-06] MEDS ORDERED: Misoprostol 50 MCG (1/2 of 100 MCG) Tab VAG ONE (09:00)
[2021-12-06] MEDS: Penicillin G Potassium 3 MILLUNITS in Sodium Chloride 0.9% 100 ML IV SCH ×2 (13:16→17:55)
[2021-12-06] MEDS ORDERED: diphenhydrAMINE 50 MG/ML SDV IVPUSH PRN (14:11)
[2021-12-06] MEDS ORDERED: Naloxone 2 MG/2 ML Syringe IVPUSH PRN (14:11)
[2021-12-06] MEDS ORDERED: ePHEDrine 50 MG/ML SDV IVPUSH PRN (14:11)
[2021-12-06] MEDS ORDERED: Citric Acid/Sodium Citrate Solution 30 ML Cup PO ONE (14:15)
[2021-12-06] MEDS ORDERED: Oxytocin/Normal Saline 60 UNIT/1,000 ML BAG ONE (14:19)
[2021-12-06] MEDS ORDERED: ceFAZolin 2 GM in Premix Bag 1 BAG IV SCH (14:30)
[2021-12-06] MEDS: Lactated Ringers 1,000 ML IV SCH ×2 (14:45→18:33)
[2021-12-06] MEDS: Ondansetron 4 MG/2 ML SDV IVPUSH PRN ×2 (17:56→21:50)
[2021-12-06] MEDS: Simethicone 80 MG Tab.Chew PO SCH ×2 (18:14→21:00)
[2021-12-06] MEDS: Acetaminophen/oxyCODONE 325-5 MG Tab PO PRN (20:35)
[2021-12-06] MEDS: Ketorolac 30 MG/ML SDV IVPUSH SCH (22:19)
[2021-12-07] MEDS: Lactated Ringers 1,000 ML IV SCH (01:40)
[2021-12-07] MEDS: Ketorolac 30 MG/ML SDV IVPUSH SCH ×2 (04:16→10:21)
[2021-12-07] MEDS: Simethicone 80 MG Tab.Chew PO SCH ×4 (08:52→20:38)
[2021-12-07] MEDS: Prenatal Multivitamin with Calcium/Folic Acid/Iron Tab PO SCH (08:52)
[2021-12-07] MEDS: Docusate Sodium 100 MG Cap PO PRN ×2 (08:52→20:38)
[2021-12-07] MEDS: Sodium Chloride 0.9% 10 ML Syringe FLUSH SCH (09:10)
[2021-12-07] MEDS: Acetaminophen/oxyCODONE 325-5 MG Tab PO PRN ×2 (15:54→20:41)
[2021-12-07] MEDS: Ibuprofen 800 MG Tab PO PRN (18:13)
[2021-12-08] MEDS: Ibuprofen 800 MG Tab PO PRN ×2 (01:46→10:05)
[2021-12-08] MEDS: Acetaminophen/oxyCODONE 325-5 MG Tab PO PRN ×2 (05:47→11:39)
[2021-12-08] MEDS: Docusate Sodium 100 MG Cap PO PRN (08:48)
[2021-12-08] MEDS: Prenatal Multivitamin with Calcium/Folic Acid/Iron Tab PO SCH (08:48)
[2021-12-08] MEDS: Simethicone 80 MG Tab.Chew PO SCH (08:48)
[2021-12-08 08:57] VITALS: BP 105/65; PULSE 78
[2021-12-08] MEDS ORDERED: Lactated Ringers 1,000 ML IV ONE (11:39)
[2021-12-08] MEDS ORDERED: Morphine PF 10 MG/10 ML SDV ONE (11:39)
[2021-12-08] MEDS ORDERED: Oxytocin/Normal Saline 30 UNIT/500 ML BAG IV ONE (11:39)
[2021-12-08] MEDS ORDERED: Dexamethasone 4 MG/ML SDV IV ONE (11:39)
[2021-12-08] MEDS ORDERED: Ketorolac 30 MG/ML SDV IVPUSH ONE (11:39)
[2021-12-08] MEDS ORDERED: Ondansetron 4 MG/2 ML SDV IV ONE (11:39)
== END 2021-12-08 11:40 | disposition home or self-care (01) | DRG 788 ==
LOC: DL.OBCHECK 08:04 → DL.OB 08:32
PROVIDERS: ADMIT Family Medicine; ATTEND Family Medicine
PROC: 10D00Z1 Extraction of Products of Conception, Low, Open Approach (ICD-10-PCS; principal; 2021-12-06)
PROC: 3E0P7VZ Introduction of Hormone into Female Reproductive, Via Natural or Artificial Opening (ICD-10-PCS; 2021-12-06)
PROC: 4A1HXCZ Monitoring of Products of Conception, Cardiac Rate, External Approach (ICD-10-PCS; 2021-12-06)
PROC: 3E0234Z Introduction of Serum, Toxoid and Vaccine into Muscle, Percutaneous Approach (ICD-10-PCS; 2021-12-06)
DX: O99.824 Streptococcus B carrier state complicating childbirth (principal); Z3A.38 38 weeks gestation of pregnancy; Z37.0 Single live birth; O24.424 Gestational diabetes mellitus in childbirth, insulin controlled; O99.02 Anemia complicating childbirth; D64.9 Anemia, unspecified; Z23 Encounter for immunization; Z20.822 Contact with and (suspected) exposure to COVID-19
CPT/HCPCS: 01967; 36415; 59025; 76815; 82947; 85027; 86850; 86900; 86901; A9270-GY; J0690; J1100; J1885; J2270; J2405; J2540; J2590; J3490; J7120; U0002

== ENCOUNTER 2021-12-10 23:30 | Observation (INO) | payer MEDICAID ==
[2021-12-11] MEDS ORDERED: Sodium Chloride 0.9% 10 ML Syringe FLUSH PRN (00:50)
[2021-12-11 01:29] LABS: CHLORIDE,CL 107 mmol/L (98-107); SODIUM,NA 142 mmol/L (136-145)
[2021-12-11] MEDS ORDERED: Sodium Chloride 0.9% 500 ML IV ONE (01:30)
[2021-12-11 04:04] LABS: CORONAVIRUS COVID-19 NAA NEGATIVE (NEGATIVE)
[2021-12-11] MEDS ORDERED: Ibuprofen 600 MG Tab PO PRN (04:12)
[2021-12-11] MEDS ORDERED: Acetaminophen 325 MG Tab PO PRN (04:14)
[2021-12-11] MEDS ORDERED: Polyethylene Glycol 3350 Powder 17 GM Packet PO ONE (04:28)
[2021-12-11 12:27] VITALS: BP 121/79; PULSE 74
== END 2021-12-11 13:30 | disposition home or self-care (01) ==
LOC: DL.ED 23:30 → INTOOBSV 12-11 04:39 → DL.MS 12-11 04:39
PROVIDERS: ADMIT Student in an Organized Health Care Education/Training Program; ATTEND Student in an Organized Health Care Education/Training Program
DX: O14.05 Mild to moderate pre-eclampsia, complicating the puerperium (principal); Z20.822 Contact with and (suspected) exposure to COVID-19
CPT/HCPCS: 0240U; 36415; 71045; 80053; 81001; 82565; 82570; 83605; 83735; 83880; 84156; 84450; 84460; 84484; 85025; 85027; 85379; 85610; 86140; 87086; 93005; 99285; A9270; G0378; J3490; J7040